=== PATIENT | female | born 1975 | race Caucasian/White ===

== ENCOUNTER 2021-06-25 16:12 | Emergency (ER) | payer OTHER ==
[~2021-06-25] VITALS: Ht 170.1 cm; Wt 74.8 kg
[~2021-06-25 16:12] MED LIST: LIDODERM1 EACH T; MEDROL DOSEPAK4 MG PO; Motrin,Rufen800 MG PO; ROBAXIN500 M1 PO
== END 2021-06-25 21:45 | disposition left against medical advice (07) ==
LOC: ED 16:12
DX: R21 Rash and other nonspecific skin eruption (principal); Z53.21 Procedure and treatment not carried out due to patient leaving prior to being seen by health care provider

== ENCOUNTER 2022-04-28 13:25 | Emergency (ER) | payer OTHER ==
[~2022-04-28] VITALS: Wt 72.6 kg
[2022-04-28 14:46] LABS: BASO # 0.1 10*3/uL (0.0-0.1); BASO % 1.2 % (0.0-1.0); EOS # 0.2 10*3/uL (0.0-0.4); EOS % 3.8 % (1.0-4.0); LYMPH # 2.1 10*3/uL (1.3-4.4); LYMPH % 35.7 % (27.0-41.0); MEAN CELL VOLUME 93.3 fl (81.0-99.0); MEAN CORPUSCULAR HGB 31.8 pg (27.0-31.0); MEAN CORPUSCULAR HGB CONC 34.1 g/dl (33.0-37.0); MEAN PLATELET VOLUME 10.3 fl (9.6-12.3); MONO # 0.5 10*3/uL (0.1-1.0); MONO % 9.2 % (3.0-9.0); NEUT # 2.9 10*3/uL (2.3-7.9); NEUT % 49.9 % (47.0-73.0); PLATELET COUNT AUTOMATED 210 10*3/uL (130-400); RED BLOOD COUNT 4.18 10*6/uL (4.10-5.10); RED CELL DISTRI WIDTH 11.6 % (0-14.5); WHITE BLOOD COUNT 5.9 10*3/uL (4.8-10.8)
[2022-04-28 15:27] LABS: ALKALINE PHOSPHATASE 40 U/L (45-117); BUN 10 mg/dl (7-24); CHLORIDE 111 mmol/L (98-107); CREATININE 0.81 mg/dL (0.55-1.02); LIPASE 149 U/L (73-393); POTASSIUM 3.8 mmol/L (3.5-5.1); SGOT/AST 8 IU/L (3-35); SGPT/ALT 11 U/L (12-78); SODIUM 139 mmol/L (136-145); TOTAL PROTEIN 5.9 gm/dL (6.4-8.2)
[2022-04-28 15:29] LABS: BILIRUBIN Negative (Negative); BLOOD Negative (Negative); CLARITY Clear (Clear); COLOR Yellow (Yellow); GLUCOSE Negative (Negative); KETONE Trace (Negative); LEUKO ESTERASE Negative (Negative); NITRITE Negative (Negative)
[2022-04-28 16:06] LABS: BACTERIA TRACE
[2022-04-28] MEDS ORDERED: ONDANSETRON4 MG SL (17:00)
== END 2022-04-28 17:03 | disposition home or self-care (01) ==
LOC: ED 13:25
PROVIDERS: Nurse Practitioner Family
DX: K52.9 Noninfective gastroenteritis and colitis, unspecified (principal); R11.2 Nausea with vomiting, unspecified; Z88.5 Allergy status to narcotic agent